=== PATIENT | male | born 1995 | race Caucasian/White ===

== ENCOUNTER 2019-07-21 19:50 | Emergency (ER) | payer BC ==
[~2019-07-21] VITALS: Ht 177.8 cm; Wt 73.0 kg
[2019-07-21] MEDS ORDERED: CEFTRIAXONE SODIUM 250 MG/VIAL IM ONE (20:45)
[2019-07-21] MEDS ORDERED: AZITHROMYCIN 500 MG TABLET PO ONE (20:45)
[2019-07-21] MEDS ORDERED: LIDOCAINE HCL 1% 20ML VIAL (Pyxis) INJ INFIL ONE (20:45)
[2019-07-21 21:22] VITALS: BP 132/62
[2019-07-21 21:49] LABS: CLARITY URINE TURBID (CLEAR); COLOR URINE YELLOW (YELLOW); KETONES URINE NEGATIVE (NEGATIVE); LEUKOCYTE ESTERASE URINE 2+ (NEGATIVE); NITRITE URINE NEGATIVE (NEGATIVE); OCCULT BLOOD URINE TRACE (NEGATIVE); PH URINE 5.5 (4.5-8.0); PROTEIN URINE TRACE (NEGATIVE); SPECIFIC GRAVITY URINE 1.037 (1.005-1.030)
== END 2019-07-21 21:22 | disposition home or self-care (01) ==
LOC: ER 19:50
DX: A64 Unspecified sexually transmitted disease (principal)
CPT/HCPCS: 81003; 87086; 96372; 99283; J0696; J3490